=== PATIENT | male | born 1955 | race Caucasian/White ===

== ENCOUNTER 2017-01-19 06:27 | Inpatient (IN) | payer OTHER ==
[2017-01-19] MEDS ORDERED: NS 0.9% 1000 ML* 1,000 ML IV ONE (06:41)
--- NOTE | 2017-01-19 07:25 | RAD ---
INDICATION: Dizziness, history of hypertension. COMPARISON: There are no prior studies available for comparison. TECHNIQUE: Contiguous axial sections of the brain were obtained from the skull base to the vertex without contrast. FINDINGS: The ventricles, cisterns and sulci are within normal limits. No significant focal abnormality or mass effect is seen. There is no evidence for hemorrhage. No significant focal osseous abnormality is seen. The visualized portion of the paranasal sinuses and mastoid air cells appear clear. IMPRESSION: NO EVIDENCE FOR GROSS ACUTE INFARCT, MASS EFFECT OR HEMORRHAGE.
[2017-01-19 07:42] LABS: Alcohol < 10 mg/dL (<10)
[2017-01-19 07:44] LABS: ALT 15 U/L (7-52); AST 15 U/L (13-39); Alkaline Phosphatase 40 U/L (34-104); Anion Gap 9 mmol/L (2-11); Blood Urea Nitrogen 17 mg/dL (6-24); C Reactive Protein 1.22 mg/L (< 5.00); CO2 Carbon Dioxide 24 mmol/L (22-32); Calcium 9.1 mg/dL (8.6-10.3); Chloride 103 mmol/L (101-111); Creatine Kinase 122 U/L (10-223); EGFR African American 123.8 (>60); EGFR Non-African American 96.2 (>60); Glucose 197 mg/dL (70-100); Magnesium 1.9 mg/dL (1.9-2.7); Potassium 4.1 mmol/L (3.5-5.0); Sodium 136 mmol/L (133-145)
[2017-01-19 07:45] LABS: Troponin I 0.01 ng/mL (<0.04)
[2017-01-19 07:46] LABS: Hematocrit 45 % (42-52); Hemoglobin 14.9 g/dl (14.0-18.0); Mean Corpuscular HGB Conc 33 g/dl (31-36); Mean Corpuscular Hemoglobin 29 pg (27-31); Mean Corpuscular Volume 89 fL (80-94); Mean Platelet Volume 9 um3 (7.4-10.4); Red Blood Count 5.11 10^6/ul (4.0-5.4); Red Cell Distribution Width 13 % (10.5-15); White Blood Count 15.9 10^3/ul (3.5-10.8)
[2017-01-19] MEDS ORDERED: Ondansetron INJ* 2 MG/ML VIAL IV ONE (07:55)
[2017-01-19 08:09] LABS: TSH (Thyroid Stimulating Horm) 1.23 mcIU/mL (0.34-5.60)
[2017-01-19] MEDS ORDERED: Meclizine TAB* 12.5 MG PO ONE (08:23)
--- NOTE | 2017-01-19 08:23 | RAD ---
HISTORY: Dizziness COMPARISONS: September 21, 2014 VIEWS: 1: frontal portable view of the chest at 6:52 AM FINDINGS: LINES AND TUBES: None. CARDIOMEDIASTINAL SILHOUETTE: The cardiomediastinal silhouette is stable. PLEURA: The costophrenic angles are sharp. No pleural abnormalities are noted. LUNG PARENCHYMA: The lungs are clear. ABDOMEN: The upper abdomen is clear. There is no subphrenic gas. BONES AND SOFT TISSUES: No bone or soft tissue abnormalities are noted. IMPRESSION: NO ACTIVE CARDIOPULMONARY DISEASE.
--- NOTE | 2017-01-19 08:23 | ED ---
Marixa Wei Alfonso, scribed for Kenisha Edwards MD on 01/19/17 at 0636 . Neurological HPI - HPI Summary HPI Summary: This patient is a 61 year old M presenting to [facility] with a chief complaint of room spinning dizziness since waking up this morning. He reports inability to stand. The patient rates the pain 0/10 in severity. Symptoms aggravated by nothing. Symptoms alleviated by nothing. reports headache (yesterday), diaphoresis and confusion. Patient reports nausea. He does not take any blood thinning medication. PMHx includes HTN and DMII for which he take metformin 500 mg QID. He also takes Glipizide 10 mg, Losartan, and Omeprazole daily. His glucose is 197. 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 - Allergy/Home Medications Allergies/Adverse Reactions: Allergies Allergy/AdvReac Type Severity Reaction Status Date / Time No Known Allergies Allergy Verified 09/21/14 16:01 PMH/Surg Hx/FS Hx/Imm Hx Endocrine/Hematology History: Reports: Hx Diabetes - type 2 Denies: Hx Thyroid Disease Cardiovascular History: Reports: Hx Hypertension Respiratory History: Denies: Hx Asthma, Hx Chronic Obstructive Pulmonary Disease (COPD) GI History: Denies: Hx Ulcer - Surgical History Surgery Procedure, Year, and Place: colon resection Infectious Disease History: Denies: Hx Hepatitis, Hx Human Immunodeficiency Virus (HIV) - Family History Known Family History: Positive: Cardiac Disease - Social History Alcohol Use: Occasionally Substance Use Type: Reports: None Smoking Status (MU): Former Smoker Review of Systems Positive: Skin Diaphoresis Positive: Nausea Positive: Other - inability to stand Neurological: Other - room spinning dizziness, headache (yesterday), confusion Psychological: Normal All Other Systems Reviewed And Are Negative: Yes Physical Exam Triage Information Reviewed: Yes Vital Signs On Initial Exam: Initial Vitals BP 133/83 01/19/17 07:20 Vital Signs Reviewed: Yes Appearance: Positive: No Pain Distress, Well-Nourished, Ill-Appearing Skin: Positive: Warm, Diaphoretic Head/Face: Positive: Normal Head/Face Inspection Eyes: Positive: Conjunctiva Clear, Other: - Pupils are 2 mm and reactive. ENT: Positive: Normal ENT inspection, Pharynx normal, TMs normal Neck: Positive: Supple, Nontender, No Lymphadenopathy Respiratory/Lung Sounds: Positive: Clear to Auscultation, Breath Sounds Present , Other - No respiratory distress Cardiovascular: Positive: RRR, Pulses are Symmetrical in both Upper and Lower Extremities, Other - Brisk capillary refill. Negative: Murmur Abdomen Description: Positive: Nontender, Soft Bowel Sounds: Positive: Present Musculoskeletal: Positive: Strength/ROM Intact. Negative: Edema Left, Edema Right Neurological: Positive: Sensory/Motor Intact, Alert, Oriented to Person Place, Time, CN Intact II-III, Reflexes Intact - 2+ and symmetric, Facial Symmetry, Speech Normal Psychiatric: Positive: Normal Diagnostics - Vital Signs Vital Signs Pulse Resp BP Pulse Ox 01/19/17 07:30 67 15 131/75 94 01/19/17 07:22 66 95 01/19/17 07:20 133/83 - Laboratory Lab Results: Lab Results 01/19/17 01/19/17 01/19/17 Range/Units 06:35 06:35 06:35 WBC 15.9 H (3.5-10.8) 10^3/ul RBC 5.11 (4.0-5.4) 10^6/ul Hgb 14.9 (14.0-18.0) g/dl Hct 45 (42-52) % MCV 89 (80-94) fL MCH 29 (27-31) pg MCHC 33 (31-36) g/dl RDW 13 (10.5-15) % Plt Count 280 (150-450) 10^3/ul MPV 9 (7.4-10.4) um3 Neut % (Auto) 45.4 (38-83) % Lymph % (Auto) 45.0 (25-47) % Mercer % (Auto) 6.8 (1-9) % Eos % (Auto) 2.1 (0-6) % Baso % (Auto) 0.7 (0-2) % Absolute Neuts (auto) 7.2 (1.5-7.7) 10^3/ul Absolute Lymphs (auto) 7.2 H (1.0-4.8) 10^3/ul Absolute Monos (auto) 1.1 H (0-0.8) 10^3/ul Absolute Eos (auto) 0.3 (0-0.6) 10^3/ul Absolute Basos (auto) 0.1 (0-0.2) 10^3/ul Absolute Nucleated RBC 0.03 10^3/ul Nucleated RBC % 0.2 INR (Anticoag Therapy) (0.89-1.11) APTT (26.0-36.3) seconds Sodium 136 (133-145) mmol/L Potassium 4.1 (3.5-5.0) mmol/L Chloride 103 (101-111) mmol/L Carbon Dioxide 24 (22-32) mmol/L Anion Gap 9 (2-11) mmol/L BUN 17 (6-24) mg/dL Creatinine 0.81 (0.67-1.17) mg/dL Est GFR ( Amer) 123.8 (>60) Est GFR (Non-Af Amer) 96.2 (>60) BUN/Creatinine Ratio 21.0 H (8-20) Glucose 197 H (70-100) mg/dL Lactic Acid 2.6 H* (0.5-2.0) mmol/L Calcium 9.1 (8.6-10.3) mg/dL Magnesium 1.9 (1.9-2.7) mg/dL Total Bilirubin 0.50 (0.2-1.0) mg/dL AST 15 (13-39) U/L ALT 15 (7-52) U/L Alkaline Phosphatase 40 (34-104) U/L Total Creatine Kinase 122 (10-223) U/L Troponin I 0.01 (<0.04) ng/mL C-Reactive Protein 1.22 (< 5.00) mg/L B-Natriuretic Peptide ( - 100) pg/mL Total Protein 7.0 (6.4-8.9) g/dL Albumin 4.0 (3.2-5.2) g/dL Globulin 3.0 (2-4) g/dL Albumin/Globulin Ratio 1.3 (1-3) TSH 1.23 (0.34-5.60) mcIU/mL Serum Alcohol < 10 (<10) mg/dL 01/19/17 01/19/17 Range/Units 06:35 06:35 WBC (3.5-10.8) 10^3/ul RBC (4.0-5.4) 10^6/ul Hgb (14.0-18.0) g/dl Hct (42-52) % MCV (80-94) fL MCH (27-31) pg MCHC (31-36) g/dl RDW (10.5-15) % Plt Count (150-450) 10^3/ul MPV (7.4-10.4) um3 Neut % (Auto) (38-83) % Lymph % (Auto) (25-47) % Mercer % (Auto) (1-9) % Eos % (Auto) (0-6) % Baso % (Auto) (0-2) % Absolute Neuts (auto) (1.5-7.7) 10^3/ul Absolute Lymphs (auto) (1.0-4.8) 10^3/ul Absolute Monos (auto) (0-0.8) 10^3/ul Absolute Eos (auto) (0-0.6) 10^3/ul Absolute Basos (auto) (0-0.2) 10^3/ul Absolute Nucleated RBC 10^3/ul Nucleated RBC % INR (Anticoag Therapy) 0.79 L (0.89-1.11) APTT 25.7 L (26.0-36.3) seconds Sodium (133-145) mmol/L Potassium (3.5-5.0) mmol/L Chloride (101-111) mmol/L Carbon Dioxide (22-32) mmol/L Anion Gap (2-11) mmol/L BUN (6-24) mg/dL Creatinine (0.67-1.17) mg/dL Est GFR ( Amer) (>60) Est GFR (Non-Af Amer) (>60) BUN/Creatinine Ratio (8-20) Glucose (70-100) mg/dL Lactic Acid (0.5-2.0) mmol/L Calcium (8.6-10.3) mg/dL Magnesium (1.9-2.7) mg/dL Total Bilirubin (0.2-1.0) mg/dL AST (13-39) U/L ALT (7-52) U/L Alkaline Phosphatase (34-104) U/L Total Creatine Kinase (10-223) U/L Troponin I (<0.04) ng/mL C-Reactive Protein (< 5.00) mg/L B-Natriuretic Peptide 16 ( - 100) pg/mL Total Protein (6.4-8.9) g/dL Albumin (3.2-5.2) g/dL Globulin (2-4) g/dL Albumin/Globulin Ratio (1-3) TSH (0.34-5.60) mcIU/mL Serum Alcohol (<10) mg/dL Result Diagrams: 01/19/17 06:35 01/19/17 06:35 Lab Statement: Any lab studies that have been ordered have been reviewed, and results considered in the medical decision making process. - Radiology CXR Radiology Interpretation Completed By: ED Physician - negative - CT brain CT Interpretation Completed By: Radiologist - NO EVIDENCE FOR GROSS ACUTE INFARCT, MASS EFFECT OR HEMORRHAGE. ED physician has reviewed this radiology report and agrees. - EKG 0630 Cardiac Rate: NL - BPM 75 EKG Rhythm: Sinus Rhythm EKG Interpretation: First degree AV block (212). Nml AV IV conduction, QTc, and axis. No STEMI. Re-Evaluation - Re-Evaluation First Eval Re-Evaluation Time: 08:00 - still with dizziness, no CP, SOB; agrees to admit Change: Unchanged Course/Dx - Course Assessment/Plan: This patient is a 61 year old M presenting to [facility] with a chief complaint of room spinning dizziness since waking up this morning. He reports inability to stand. The patient rates the pain 0/10 in severity. Symptoms aggravated by nothing. Symptoms alleviated by nothing. reports headache (yesterday), diaphoresis and confusion. Patient reports nausea. He does not take any blood thinning medication. PMHx includes HTN and DMII for which he take metformin 500 mg QID. He also takes Glipizide 10 mg, Losartan, and Omeprazole daily. His glucose is 197. An EKG reveals NSR and first degree AV block (212). Brain CT reveals NO EVIDENCE FOR GROSS ACUTE INFARCT, MASS EFFECT OR HEMORRHAGE. ED physician has reviewed this radiology report and agrees. CXR negative per ED physician. Pt will be admitted for observation and further eval and treatment - Differential Dx Differential Diagnoses Neuro: Positive: Cerebrovascular Accident, Coronary Artery Disease, Hypoglycemia, Labyrinthitis, Meniere's - Diagnoses Provider Diagnoses: Vertigo - Physician Notifications Discussed Care Of Patient With: Mulu Jacobs Time Discussed With Above Provider: 08:00 Instructed by Provider To: Admit As Observation - Critical Care Time Critical Care Time: 30-74 min - 30 mins Discharge - Discharge Plan Condition: Stable Disposition: ADMITTED TO [facility] documentation as recorded by the Marixa cabrera Alfonso accurately reflects the service I personally performed and the decisions made by , Kenisha Edwards MD.
[2017-01-19 08:29] LABS: Urine Bilirubin Negative (Negative); Urine Glucose 3+(>=500 mg/dL) (Negative); Urine Nitrite Negative (Negative)
[2017-01-19] MEDS ORDERED: Ondansetron INJ* 2 MG/ML VIAL IV PRN (08:54)
[2017-01-19] MEDS ORDERED: Dextrose 50% Syringe 50 ML* 25 GM/50 ML SYRINGE IV PUSH PRN (08:56)
[2017-01-19] MEDS: Diazepam TAB(*) 5 MG PO SCH ×2 (11:29→17:29)
[2017-01-19] MEDS ORDERED: Pneumococcal *Vac Polyvalent 0.5 ML VIAL IM ONE (12:00)
[2017-01-19] MEDS: Insulin LISPRO* 1 UNITS UNIT SUBCUT SCH ×3 (13:40→21:41)
--- NOTE | 2017-01-19 13:46 | HP ---
CC: Armida Mae MD, at [place]. * HISTORY AND PHYSICAL: DATE OF ADMISSION: 01/19/17. TIME OF EVALUATION: 8:30 a.m. PRIMARY CARE PROVIDER: Dr. Armida Mae, at [place]. CHIEF COMPLAINT: "I am dizzy." HISTORY OF PRESENT ILLNESS: Mr. John is a 61-year-old male with a past medical history of hypertension, type 2 diabetes, hyperlipidemia who presented to the emergency room with complaints of dizziness. He states that yesterday, he was not feeling well as he had a headache and some nausea. He stayed home from work and took some Tylenol with relief. He states that he went to bed and felt well, but around 2:30 in the morning he woke up and while looking to his wall clock, he states that the clock was moving up and down. He sat up in bed, felt very dizzy, decided to lie down again and was able to sleep until 5:30 in the morning when he called his and told her that something was wrong. She states that initially he had difficulty explaining what he was feeling, but later on she was able to understand that he meant he was feeling dizzy with a spinning sensation. He was unable to stand up and dress himself by himself. She had to assist him and states he was falling towards the left grabbing at araiza and furniture with his right side. She was able to move him to the car, but he had a difficult time getting out when she noticed the same pattern of falling to the left side and trying to grab things for support on his right. The patient states that last week, he started to feel that his left ear was full and with a sensation that he could "hear the ocean" in his left ear. He denied earache, but has only this full sensation. There is no complaint of fever, chills, body aches, diarrhea, urinary complaints. While in the emergency room, the patient was lying on his left side and had a very difficult time sitting up to swallow pills as he states the minimal movement makes his dizziness worse and provokes nausea. He states he had a similar episode in the past when he was diagnosed with diabetes. At that time, the culprit had been a dish of pasta that he had for lunch and had provoked his symptoms that his sugar was very high. Of note, he did have tuna pasta casserole last night but his glucose in the emergency room was 197. PAST MEDICAL HISTORY: 1. Hypertension. 2. Hyperlipidemia. 3. Type 2 diabetes. ALLERGIES: No known drug allergies. MEDICATION LIST: 1. Losartan 100 mg p.o. at bedtime. 2. Metformin 2000 mg p.o. at bedtime. 3. Omeprazole 20 mg p.o. at bedtime. 4. Simvastatin 10 mg p.o. at bedtime. FAMILY HISTORY: The patient's mother had a history of coronary artery disease with bypass in her 50s. There is also a history of abdominal aneurysm that required surgery. His father had a history of melanoma and stomach cancer. SOCIAL HISTORY: No history of tobacco, alcohol or drug use. Surrogate decision maker is his Norma John, phone number is [phone]. PHYSICAL EXAMINATION GENERAL: The patient is a pleasant, obese gentleman lying on his left side in the ER stretcher, in no acute distress. VITAL SIGNS: Temperature 97.6, heart rate is 70, respiratory rate is 15, oxygen saturation 94% on room air, blood pressure is 134/74. HEENT: Pupils are equal. Moist mucous membranes. Right ear shows a normal tympanic membrane with no erythema or fluids. Left ear shows no erythema. Normal amount of cerumen. Tympanic membrane shows no erythema or fluid level. CHEST: Breath sounds present bilaterally with no added sounds. CVS: Normal S1 and S2. Regular rate and rhythm. ABDOMEN: Soft, nontender, nondistended. Bowel sounds present. EXTREMITIES: No edema. NEURO: He is alert and oriented x3. Face is symmetric. Speech is clear. He is able to move all 4 extremities. Power is equal bilaterally. He does have horizontal nystagmus specially when looking to the right. Gait was not attempted as the patient had significant dizziness and nausea when he sat up to take a pill. LABORATORY/IMAGING DATA: CBC showed WBC of 15.9, hemoglobin of 14.9, hematocrit of 45, platelets of 280 with 45% neutrophils. INR was 0.79. Chemistry was normal except for glucose of 197, hemoglobin A1c of 8.7, lactic acid of 2.6. LFTs are normal. CRP is 1.2. Urinalysis showed trace ketones, 3 + glucose. Toxicology showed alcohol level less than 10. EKG done on 01/19/17 at 6:30 a.m. showed sinus rhythm at 75 beats per minute with no ST-T changes. No significant change when compared to his prior EKG from 2014. CT brain without contrast showed no evidence for gross acute infarct, mass effect or hemorrhage. Chest x-ray showed no active cardiopulmonary disease. ASSESSMENT AND PLAN: Mr. John is a 61-year-old male with a past medical history of hypertension, hyperlipidemia, type 2 diabetes who presented to the emergency room with complaints of dizziness and nausea, found to have vertigo probably secondary to vestibular neuronitis. 1. Vertigo. The patient's history suggests a peripheral etiology for his vertigo. His complaints of left ear fullness and tinnitus preceding his episode of dizziness associated with nystagmus suggests vestibular neuronitis as the source. He will be admitted to the telemetry floor and he will be monitored closely. He will receive symptomatic treatment with meclizine, diazepam and Zofran. The patient does have risk factors for cerebrovascular accident with his hypertension, hyperlipidemia and diabetes, but as stated above, his presentation at this point is really suggestive of a peripheral etiology. If his symptoms persist or worsen, we will pursue further workup with an MRI of the brain and neurology consultation. 2. Hypertension is controlled. We will continue losartan. 3. Type 2 diabetes. We will hold metformin for now and cover his fingersticks with a lispro sliding scale. 4. Hyperlipidemia. We will continue statin. 5. Mild lactic acidosis, likely secondary to mild dehydration, metformin use. The patient will receive IV hydration. 6. DVT prophylaxis. The patient has a score of 2 on the DVT Prophylaxis Risk Assessment Guide and he will be started on subcutaneous heparin. 7. Code status is full. TIME SPENT: Approximately 60 minutes was spent with the patient interview, medical records review, physical examination to complete admission, more than half of this time was spent [id number] with the patient and coordination of care. [id number]/[facility] #: [id number] [facility]. NOBLE HOSPITALDayanara
[2017-01-19] MEDS: Acetaminophen TAB* 325 MG PO PRN ×2 (13:52→21:41)
[2017-01-19] MEDS: Meclizine TAB* 12.5 MG PO SCH ×2 (13:52→21:23)
[2017-01-19] MEDS: Heparin VIAL(*) 5000 UNITS/ML VIAL (FIVE THOUSAND) SUBCUT SCH ×2 (13:53→21:23)
[2017-01-19] MEDS: Omeprazole CAP* 20 MG PO SCH (21:21)
[2017-01-19] MEDS: Losartan TAB* 25 MG PO SCH (21:22)
[2017-01-19] MEDS: Atorvastatin* 10 MG TAB PO SCH (21:23)
[2017-01-19] MEDS: NS 0.9% 1000 ML* 1,000 ML IV SCH (21:25)
[2017-01-20] MEDS: Diazepam TAB(*) 5 MG PO SCH ×3 (02:01→17:05)
[2017-01-20] MEDS: Acetaminophen TAB* 325 MG PO PRN (06:07)
[2017-01-20] MEDS: Meclizine TAB* 12.5 MG PO SCH ×3 (06:07→21:30)
[2017-01-20] MEDS: Heparin VIAL(*) 5000 UNITS/ML VIAL (FIVE THOUSAND) SUBCUT SCH ×3 (06:08→21:35)
[2017-01-20] MEDS: NS 0.9% 1000 ML* 1,000 ML IV SCH (06:09)
[2017-01-20] MEDS: Insulin LISPRO* 1 UNITS UNIT SUBCUT SCH ×4 (09:45→21:42)
--- NOTE | 2017-01-20 10:59 | PN ---
Subjective Date of Service: 01/20/17 Interval History: HOSPITALIST PROGRESS NOTE Patient seen and examined at bedside. He feels a little better today. Able to move in bed and sit up, but unable to walk yet. Nausea is less intense, tolerating diet with no vomiting. Family History: Unchanged from Admission Social History: Unchanged from Admission Past Medical History: Unchanged from Admission Objective Active Medications: Acetaminophen (Tylenol Tab*) 650 mg PO Q6H PRN PRN Reason: pain/fever Last Admin: 01/20/17 06:07 Dose: 650 mg Atorvastatin Calcium (Lipitor*) 5 mg PO BEDTIME [facility] Last Admin: 01/19/17 21:23 Dose: 5 mg Dextrose (D50w Syringe 50 Ml*) 12.5 gm IV PUSH .FOR FS < 60 - SS PRN PRN Reason: FS < 60 Diazepam (Valium Tab(*)) 5 mg PO Q8H [facility] Last Admin: 01/20/17 08:07 Dose: 5 mg Heparin Sodium (Porcine) (Heparin Vial(*)) 5,000 units SUBCUT Q8HR [facility] Last Admin: 01/20/17 06:08 Dose: 5,000 units Insulin Human Lispro (Humalog*) 0 units SUBCUT ACHS CAROL ANN PRN Reason: Protocol Last Admin: 01/20/17 09:45 Dose: 2 units Losartan Potassium (Cozaar Tab*) 100 mg PO BEDTIME [facility] Last Admin: 01/19/17 21:22 Dose: 100 mg Meclizine HCl (Antivert Tab*) 25 mg PO Q8HR [facility] Last Admin: 01/20/17 06:07 Dose: 25 mg Omeprazole (Prilosec Cap*) 20 mg PO BEDTIME [facility] Last Admin: 01/19/17 21:21 Dose: 20 mg Ondansetron HCl (Zofran Inj*) 4 mg IV Q6H PRN PRN Reason: NAUSEA Vital Signs 01/20/17 01/20/17 01/20/17 04:01 04:20 07:34 Temperature 98.4 F 98.3 F Pulse Rate 67 66 Respiratory 16 16 17 Rate Blood Pressure 142/72 128/68 (mmHg) O2 Sat by Pulse 94 94 Oximetry Oxygen Devices in Use Now: None Appearance: Pleasant gentleman lying in bed in NAD. Eyes: PERRLA, - - Nystagmus still present when he looks to the left Ears/Nose/Mouth/Throat: Mucous Membranes Moist Neck: Trachea Midline Respiratory: Symmetrical Chest Expansion and Respiratory Effort, Clear to Auscultation Cardiovascular: RRR - Normal S1 and S2 Abdominal: NL Sounds; No Tenderness; No Distention Neurological: Alert and Oriented x 3, NL Muscle Strength and Tone, - - Unable to check gait Lines/Tubes/Other Access: Clean, Dry and Intact Peripheral IV Nutrition: Taking PO's Result Diagrams: 01/19/17 06:35 01/19/17 06:35 Assess/Plan/Problems-Billing Assessment: Mr. John is a 61yo M with PMH of HTN, HLD, DM, who presented to ED with c/o dizziness, found to have vestibular neuronitis. - Patient Problems (1) Vestibular neuronitis of left ear Comment: - He is a little improved today, but still symptomatic. - Although his history suggests peripheral etiology, his neuro checks remain unchanged, he does have multiple risk factors for CVA. - Will request Neurology consult. - Continue Valium and Meclizine. - D/c IVF. (2) HTN (hypertension) Comment: - Controlled. - Continue Losartan. (3) HLD (hyperlipidemia) Comment: - Continue statin. (4) Diabetes Comment: - A1c 8.7. - Continue Lispro SS. (5) DVT prophylaxis Comment: - SQ heparin. (6) Full code status Status and Disposition: Change to inpatient.
[2017-01-20 12:00] LABS: BUN/Creatinine Ratio 17.1 (8-20); Calcium 8.5 mg/dL (8.6-10.3); EGFR African American 133.2 (>60); EGFR Non-African American 103.6 (>60); Magnesium 1.9 mg/dL (1.9-2.7); Potassium 3.6 mmol/L (3.5-5.0)
--- NOTE | 2017-01-20 14:59 | CONS ---
CONSULTATION REPORT: DATE OF CONSULT: 01/20/17 PATIENT OF: Dr. Mancini and Milagro Mehta. HISTORY OF PRESENT ILLNESS: This is a 61-year-old right-handed man who a year ago had a sensation of dizziness with difficulty walking associated with changes of head position making it worse and with feeling of left ear fullness and sound of ocean in his ears. This was mild. There were symptoms that he currently has, but it was the same symptoms. He was fine up until the day prior admission on 01/18/17, when he had a little bit of nausea. He stayed home from work and then when he woke up at 2:30 in the morning, he had a sensation of movement and this was worse with head movement. He was nauseous, but had no vomiting. He tended to fall to the left and he has this feeling of left ear fullness with the sound of ocean running in it. He has had no tinnitus. He has had no hearing problems. His symptoms all get worse when he looked to the left. From yesterday till today, he is significantly better and is able to move his head, but if he moves it quickly to the left he still will get this sensation. He has had no fever, chills, diarrhea. There has been a mild headache. It is nondescript and he will occasionally get mild headaches. His episode a year ago was thought to be due to his diabetes. He has never seen ENT. PAST MEDICAL HISTORY: He has a history of hypertension, hyperlipidemia, type 2 diabetes. He is a former smoker, who quit when he was in his early 30s. MEDICATIONS: Include: 1. Losartan 100 mg at bedtime. 2. Metformin 2000 mg at bedtime. 3. Omeprazole for GERD 20 mg at bedtime. 4. Simvastatin 10 mg at bedtime. ALLERGIES: He has no known drug allergies. FAMILY HISTORY: The mother had coronary artery disease with bypass in her 50s. There was also a history of abdominal aneurysm. His father had melanoma and stomach cancer. SOCIAL HISTORY: He does not drink or use drugs. PHYSICAL EXAM: Temperature 98.3, pulse 66, respirations 18, blood pressure 128/ 68. He was alert and oriented with normal speech, comprehension. Cranial nerves II through XII are intact other than he had some coarse saccades when looking to the right after quick head movement to the left. He had no nystagmus currently and he has had no sensation of vertigo other than feelings likely a side sensation movement when he moves his head quickly to the left rather than right. He was able to sit up and walk taking a few steps without problem, but with some hesitancy. I touched the top of his hand, there is gentle steadying. This was apparently much better than prior. Strength was 5/5. [id number] was intact. No pronator drift. Sensation intact to light touch. Reflexes were 2 and equal with trace to one ankle jerks. Toes were downgoing. Chest: Clear. Cardiovascular: Regular rate and rhythm. Abdomen: Soft with positive bowel sounds. LABORATORY DATA: His CT scan I reviewed and was normal. His EKG was sinus rhythm. His labs include negative serum alcohol. Normal CBC other than a white count of 15.9. INR was 0.79, PTT 25.7. Normal CMP other than a glucose of 197. BUN and creatinine ratio is 21.0. Lactic acid initially was 2.6. Normal thyroid. CRP 1.25. UA was negative other than 3+ glucose. IMPRESSION AND PLAN: I discussed with the patient and Dr. Mancini that he has had episodic vertigo associated with left ear fullness and the sound of ocean in his ear at the times of dizziness and the dizziness was positional. 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 He should have physical therapy as an outpatient just in case his ear then he can do a vestibular rehab. He should, since this is recurrent, see ENT, but the issue was whether this is the beginning of Meniere's. He does have multiple risk factors for stroke, but given the fact that this is recurrent and associated with this feeling of ear and since this is strongly positional, I do not think that this is secondary to a cerebellar stroke. Thank you for sharing his case. [id number]/[facility] #: [id number] VICTOR MANUEL
[2017-01-20] MEDS: Omeprazole CAP* 20 MG PO SCH (21:29)
[2017-01-20] MEDS: Losartan TAB* 25 MG PO SCH (21:29)
[2017-01-20] MEDS: Atorvastatin* 10 MG TAB PO SCH (21:30)
[2017-01-21] MEDS: Diazepam TAB(*) 5 MG PO SCH ×2 (01:01→08:00)
[2017-01-21] MEDS: Meclizine TAB* 12.5 MG PO SCH (07:11)
[2017-01-21] MEDS: Heparin VIAL(*) 5000 UNITS/ML VIAL (FIVE THOUSAND) SUBCUT SCH (07:11)
[2017-01-21 07:53] VITALS: BP 129/77
[2017-01-21] MEDS: Insulin LISPRO* 1 UNITS UNIT SUBCUT SCH (08:00)
--- NOTE | 2017-01-21 22:52 | DS ---
CC: Dr. Craven; Dr. Alamo; Dr. Baird; Dr. Calix; Dr. Mujica * DISCHARGE SUMMARY: DATE OF ADMISSION: 01/19/17 DATE OF DISCHARGE: 01/21/17 PRIMARY CARE PROVIDER: Dr. Craven. CONSULTING NEUROLOGIST: Dr. Alamo. SILK SCREEN PRINTING RACKER: Dr. Baird. ENT: Dr. Calix. WASHER BLANKET: Dr. Mujica. DISCHARGE DIAGNOSES: 1. 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 2. Episode of 6 beats of ventricular tachycardia, asymptomatic. 3. Probable obstructive sleep apnea. SECONDARY DIAGNOSES: 1. Hypertension. 2. Hyperlipidemia. 3. Type 2 diabetes. MEDICATIONS: 1. Simvastatin 10 mg p.o. at bedtime. 2. Omeprazole 20 mg p.o. at bedtime. 3. Metformin 2000 mg p.o. at bedtime. 4. Losartan 100 mg p.o. at bedtime. NEW MEDICATIONS: 1. Metoprolol succinate 25 mg p.o. daily. 2. Meclizine 25 mg p.o. t.i.d. 3. Diazepam 5 mg p.o. q.8 hours, MDD 15 mg, dispensed 30 tablets. HOSPITAL COURSE: Mr. John is a 61-year-old male with a past medical history as stated above, who presents to the emergency room with complaints of dizziness described as a spinning sensation, especially when changing positions associated with nausea. For more details about his presentation, I refer you to his history and physical. On admission, the impression was the patient had peripheral vertigo likely secondary to vestibular neuronitis. He received symptoms treatment with some improvement. A CT of the brain without contrast was negative, but as his symptoms persisted and the patient has risk factors for stroke, a neurology consultation was requested with Dr. Alamo. His impression was the patient has had episodic vertigo associated with left ear fullness and the sound of the ocean in his ear. He felt that this could represent recurrent peripheral labyrinthitis. He did not think this was center in nature and a stroke workup was not indicated. His recommendation was for vestibular physical therapy as outpatient and also evaluation by ENT as outpatient, as this could be the beginning of Meniere disease. The patient continued to have improvement of this symptoms and on the day of discharge, he is able to ambulate, but he still has some dizziness if he changes positions quickly. While on telemetry, he had one episode of 6 beats of V-tach, asymptomatic. I suspect this is probably associated with obstructive sleep apnea. The patient says he was diagnosed many years ago, but never was compliant with CPAP. He has no complaints of chest pain. Troponin was negative. EKG had no ischemic changes. Electrolytes were also normal. At this point, I believe he would benefit of a sleep study as outpatient and follow up with Dr. Mujica and also follow up with Dr. Baird. He states that in the past, he had some sort of arrhythmia and was recommended ablation, but he never pursued it and the episodes have resolved. I believe he should follow with Dr. Baird and he should probably have stress test performed when his dizziness is improved considering his risk factors for coronary artery disease. The patient is likely stable for discharge at this time. PHYSICAL EXAMINATION: Vital Signs: Temperature 97.9, heart rate is 63, respiratory rate is 16, oxygen saturation is 96% on room air, blood pressure is 129/77. General: The patient is a pleasant obese male, lying in bed, in no acute distress. CVS: Normal S1, S2. Regular rate and rhythm. Chest: Breaths sounds present bilaterally with no added sounds. Extremities: No edema. Neuro: He is alert and oriented x3, able to move all 4 extremities and nystagmus is resolved. DIET: Heart healthy, consistent carb diet. ACTIVITY: As tolerated. The patient is advised to be off of work until . He is aware of side effects of Valium and he understands that he should not drive or perform activities that require intense attention while he is still taking this medication. DISPOSITION: To home. STATUS WHILE IN THE HOSPITAL: Inpatient. Please keep in mind this is a summarized version of this patient's hospital stay. If you need more information, please feel free to call me at [phone] or please obtain the full medical records. TIME SPENT: Approximately 45 minutes were spent to complete this discharge. [id number]/[id number] #: [id number] MTDD
== END 2017-01-21 11:40 | disposition home or self-care (01) | DRG 149 ==
LOC: ED 06:27 → MED 08:52 → OBSVTOIN 01-20 10:53
PROVIDERS: ADMIT Internal Medicine; ATTEND Internal Medicine
DX: H81.02 Meniere's disease, left ear (principal); I47.2 Ventricular tachycardia; E87.2 Acidosis; H83.02 Labyrinthitis, left ear; H81.22 Vestibular neuronitis, left ear; H81.392 Other peripheral vertigo, left ear; I10 Essential (primary) hypertension; E78.5 Hyperlipidemia, unspecified; G47.33 Obstructive sleep apnea (adult) (pediatric); E11.9 Type 2 diabetes mellitus without complications; Z82.49 Family history of ischemic heart disease and other diseases of the circulatory system; Z87.891 Personal history of nicotine dependence; Z72.89 Other problems related to lifestyle; Z80.0 Family history of malignant neoplasm of digestive organs; Z79.4 Long term (current) use of insulin
CPT/HCPCS: 36415; 70450; 71010; 80048; 80053; 80320; 81003; 82550; 83036; 83605; 83735; 83880; 84443; 84484; 85025; 85610; 85730; 86140; 90732; 93005; A9270-GY; G0378; G0480; J1644; J2405